=== PATIENT | female | born 1980 | race American Indian/Alaskan Native ===

== ENCOUNTER 2022-02-06 20:02 | Inpatient (IN) | payer SELFPAY ==
[2022-02-06] MEDS ORDERED: cloNIDine 0.2 MG TAB PO ONE (20:36)
--- NOTE | 2022-02-06 20:42 | Emergency Department Report ---
HPI - General Chief Complaint: Dyspnea/Respdistress Time Seen by Provider: 02/06/22 20:29 - HPI HPI: Room 17 The patient is a 41-year-old female present with chief complaint of shortness of breath. 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 Patient denies any chest pain or pain of any type. EMS was called and found the patient to be hypoxic to 90% on room air. Patient admits to an occasional cough that is sometimes productive but denies history of fever. Patient denies history of recent flights/long car trips. Patient states this is the sixth episode of shortness of breath she has had with her first episode occurring 3 months ago. The patient states she is never went to the hospital for evaluation. Patient observed desatting to 88% on room air in the ED but was placed on 2 L nasal cannula with improvement of SPO2 to 95% ED Past Medical Hx - Past Medical History Previous Medical History?: No Hx Diabetes: No (History of gestational diabetes) - Surgical History Past Surgical History?: Yes Additional Surgical History: X 3 - Family History Family history: no significant - Social History Smoking Status: Current Every Day Smoker (1/7 pack/day. Has smoked cigarettes x18 years) Substance Use Type: None (Denies illicit drug use), Alcohol (Occasional) ED Review of Systems ROS: Stated complaint: SOB Other details as noted in HPI Constitutional: denies: fever Eyes: denies: eye pain ENT: denies: throat pain Respiratory: cough, shortness of breath Cardiovascular: denies: chest pain Endocrine: no symptoms reported Gastrointestinal: denies: abdominal pain Genitourinary: denies: dysuria Musculoskeletal: denies: back pain Neurological: denies: headache Physical Exam - Physical Exam Vital Signs: Vital Signs 02/06/22 02/06/22 02/06/22 20:20 20:23 20:31 Temperature 98.4 F Pulse Rate 120 H Respiratory 20 Rate Blood Pressure 256/136 226/124 O2 Sat by Pulse 98 91 88 Oximetry 02/06/22 20:36 Temperature 99.1 F Pulse Rate 117 H Respiratory 22 Rate Blood Pressure O2 Sat by Pulse 97 Oximetry Physical Exam: GENERAL: The patient is well-developed well-nourished female sitting on str etcher not appearing to be in acute distress but exhibiting slightly increased work of breathing. [] HEENT: Normocephalic. Atraumatic. Extraocular motions are intact. Patient has moist mucous membranes. NECK: Supple. Trachea midline CHEST/LUNGS: Clear to auscultation. There is accessory muscle use HEART/CARDIOVASCULAR: Regular. There is tachycardia. There is no gallop rub or murmur. ABDOMEN: Abdomen is soft, nontender. Patient has normal bowel sounds. There is no abdominal distention. SKIN: There is no rash. There is no edema. There is no diaphoresis. NEURO: The patient is awake, alert, and oriented. The patient is cooperative. The patient has no focal neurologic deficits. The patient has normal speech. GCS 15 MUSCULOSKELETAL: There is no evidence of acute injury. ED Course Vital Signs 02/06/22 02/06/22 02/06/22 20:20 20:23 20:31 Temperature 98.4 F Pulse Rate 120 H Respiratory 20 Rate Blood Pressure 256/136 226/124 O2 Sat by Pulse 98 91 88 Oximetry 02/06/22 20:36 Temperature 99.1 F Pulse Rate 117 H Respiratory 22 Rate Blood Pressure O2 Sat by Pulse 97 Oximetry ED Medical Decision Making - Lab Data Result diagrams: 02/06/22 21:04 02/06/22 21:04 - EKG Data -: EKG Interpreted by Me EKG shows normal: sinus rhythm Rate: tachycardia (110 bpm) - EKG Data When compared to previous EKG there are: previous EKG unavailable Interpretation: nonspecific ST-T wave erick (T wave inversions in leads I, aVL) - Radiology Data Radiology results: report reviewed (Chest x-ray, CT chest), image reviewed (Chest x-ray, CT chest) interpreted by me: Chest [id number] lower lobe haziness, pulmonary edema. No pneumothorax [facility] [address] [place] [address] XRay Report Signed Patient: TOM ESTRADA MR#: [id number] : 1980 Acct:[id number] Age/Sex: 41 / F ADM Date: 02/06/22 Loc: ED Attending Dr: Ordering Physician: LUBNA NEAL MD Date of Service: 02/06/22 Procedure(s): XR chest 1V ap Accession Number(s): [id number] cc: LUBNA NEAL MD Fluoro Time In Minutes: CHEST 1 VIEW 02/06/2022 10:22 PM INDICATION / CLINICAL INFORMATION: Shortness of breath, hypoxia. COMPARISON: None available. FINDINGS: SUPPORT DEVICES: None. HEART / MEDIASTINUM: The cardiac silhouette is mildly enlarged. No other significant abnormality. LUNGS / PLEURA: There are generalized bilateral interstitial and airspace opacities, most notable along the right lung base. No significant pleural effusion. No pneumothorax. ADDITIONAL FINDINGS: No significant additional findings. IMPRESSION: Mild cardiomegaly with suspected edema/atelectasis. Signer Name: Reggie Gamez MD Signed: 02/06/2022 10:40 PM Workstation Name: [id number] Transcribed By: MN Dictated By: Reggie Gamez MD Electronically Authenticated By: Reggei Gamez MD Signed Date/Time: 02/06/222239 DD/ 39 TD/TT: [facility] [address] [place] [address] Cat Scan Report Signed Patient: TOM ESTRADA MR#: [id number] : 1980 Acct:[id number] Age/Sex: 41 / F ADM Date: 02/06/22 Loc: ED Attending Dr: Ordering Physician: LUBNA NEAL MD Date of Service: 02/06/22 Procedure(s): CT angio chest Accession Number(s): [id number] cc: LUBNA NEAL MD CTA CHEST WITH CONTRAST INDICATION / CLINICAL INFORMATION: Hypoxia. TECHNIQUE: Axial CT images were obtained through the chest after injection of 100 cc Omnipaque 350 IV contrast. 3 plane MIP and/or 3D reconstructions were produced. All CT scans at this location are performed using CT dose reduction for ALARA by means of automated exposure control. COMPARISON: One view of the chest performed today. FINDINGS: PULMONARY EMBOLUS: None. THORACIC AORTA: No significant abnormality. HEART: Mildly enlarged without other significant abnormalities. CORONARY ARTERY CALCIFICATION: Absent -- None. MEDIASTINUM / LEXI: No significant abnormality. PLEURA: No pleural effusion. No pneumothorax. LUNGS: There are multifocal bilateral groundglass opacities/consolidations with mild interlobular septal thickening. No other significant abnormality. ADDITIONAL FINDINGS: None. UPPER ABDOMEN: No acute findings. SKELETAL STRUCTURES: No significant osseous abnormality. IMPRESSION: 1. No CT evidence for pulmonary embolism. 2. Multifocal bilateral pneumonia versus pulmonary edema with mild cardiomegaly. Signer Name: Reggie Gamez MD Signed: 02/06/2022 11:46 PM Workstation Name: [id number] Transcribed By: LULU Dictated By: Reggie Gamez MD Electronically Authenticated By: Reggie Gamez MD Signed Date/Time: 02/06/222345 DD/ 43 TD/TT: - Differential Diagnosis Hypertensive urgency, PE, pneumonia, pulmonary edema Critical care attestation.: If time is entered above; I have spent that time in minutes in the direct care of this critically ill patient, excluding procedure time. ED Disposition Clinical Impression: Bilateral pneumonia, Hypoxia, Suspected 2019 novel coronavirus infection Disposition: ADMITTED INPATIENT Is pt being admited?: Yes Does the pt Need Aspirin: No Condition: Serious Instructions: Bacterial Pneumonia (ED) Time of Disposition: 23:56 (Care transferred to hospitalist (Dr. Betts))
[2022-02-06 21:49] LABS: Basophils # (Auto) 0.1 K/mm3 (0.0-0.1); Basophils % (Auto) 0.7 % (0.0-1.8); Eosinophils # (Auto) 0.1 K/mm3 (0.0-0.4); Eosinophils % (Auto) 0.5 % (0.0-4.3); Hematocrit 39.8 % (30.3-42.9); Hemoglobin 12.6 gm/dl (10.1-14.3); Lymphocytes % (Auto) 8.6 % (13.4-35.0); Mean Corpuscular HGB Conc 32 % (30-34); Mean Corpuscular Volume 86 fl (79-97); Monocytes # (Auto) 0.3 K/mm3 (0.0-0.8); Monocytes % (Auto) 2.6 % (0.0-7.3); Platelet Count 215 K/mm3 (140-440); Red Blood Count 4.63 M/mm3 (3.65-5.03); Red Cell Distribution Width 15.7 % (13.2-15.2)
[2022-02-06 22:17] LABS: BUN/Creatinine Ratio 13; Blood Urea Nitrogen 10 mg/dL (7-17); Calcium 9.7 mg/dL (8.4-10.2); Hemolysis Index 256
[2022-02-06 22:23] LABS: Free T4 (Free Thyroxine) 1.16 ng/dL (0.76-1.46)
--- NOTE | 2022-02-06 22:44 | XRay Report ---
CHEST 1 VIEW 02/06/2022 10:22 PM INDICATION / CLINICAL INFORMATION: Shortness of breath, hypoxia. COMPARISON: None available. FINDINGS: SUPPORT DEVICES: None. HEART / MEDIASTINUM: The cardiac silhouette is mildly enlarged. No other significant abnormality. LUNGS / PLEURA: There are generalized bilateral interstitial and airspace opacities, most notable lorie ng the right lung base. No significant pleural effusion. No pneumothorax. ADDITIONAL FINDINGS: No significant additional findings. IMPRESSION: Mild cardiomegaly with suspected edema/atelectasis. Signer Name: Reggie Gamez MD Signed: 02/06/2022 10:40 PM Workstation Name: [id number]
--- NOTE | 2022-02-06 23:50 | Cat Scan Report ---
CTA CHEST WITH CONTRAST INDICATION / CLINICAL INFORMATION: Hypoxia. TECHNIQUE: Axial CT images were obtained through the chest after injection of 100 cc Omnipaque 350 IV contrast. 3 plane MIP and/or 3D reconstructions were produced. All CT scans at this location are per formed using CT dose reduction for ALARA by means of automated exposure control. COMPARISON: One view of the chest performed today. FINDINGS: PULMONARY EMBOLUS: None. THORACIC AORTA: No significant abnormality. HEART: Mildly enlarged without other significant abnormalities. CORONARY ARTERY CALCIFICATION: Absent -- None. MEDIASTINUM / LEXI: No significant abnormality. PLEURA: No pleural effusion. No pneumothorax. LUNGS: There are multifocal bilateral groundglass opacities/consolidations with mild interlobular sep kenia thickening. No other significant abnormality. ADDITIONAL FINDINGS: None. UPPER ABDOMEN: No acute findings. SKELETAL STRUCTURES: No significant osseous abnormality. IMPRESSION: 1. No CT evidence for pulmonary embolism. 2. Multifocal bilateral pneumonia versus pulmonary edema with mild cardiomegaly. Signer Name: Reggie Gamez MD Signed: 02/06/2022 11:46 PM Workstation Name: [id number]
[2022-02-06] MEDS ORDERED: cefTRIAXone/NS 1 GM/50 ML 1 GM/50 ML BAG IV ONE (23:55)
[2022-02-06] MEDS ORDERED: AZITHROMYCIN/NS 500 MG/250 ML 500 MG/250 ML BAG IV ONE (23:55)
[2022-02-07] MEDS ORDERED: MORPHINE 4 MG/1 ML INJ IV PRN (02:52)
[2022-02-07] MEDS ORDERED: ONDANSETRON 4 MG/2 ML INJ IV PRN (02:52)
[2022-02-07] MEDS ORDERED: ALBUTEROL 2.5 MG/3 ML NEBU IH PRN ×2 (02:52→14:47)
[2022-02-07] MEDS ORDERED: MORPHINE 2 MG/1 ML INJ IV PRN (02:52)
[2022-02-07] MEDS ORDERED: ACETAMINOPHEN 325 MG TAB PO PRN (02:52)
[2022-02-07] MEDS ORDERED: FUROSEMIDE 40 MG/4 ML INJ IV ONE (02:54)
--- NOTE | 2022-02-07 03:00 | History and Physical Report ---
History of Present Illness Date of examination: 02/07/22 Date of admission: 02/07/22 Chief complaint: Dyspnea Respiratory distress History of present illness: 41-year-old female with history of gestational diabetes was brought to the emergency room because of shortness of breath for last couple of days. 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 Patient denies any chest pain or pain of any type. EMS was called and found the patient to be hypoxic to 90% on room air. Patient admits to an occasional cough that is sometimes productive but denies history of fever. Patient denies history of recent flights/long car trips. Patient states this is the sixth episode of shortness of breath she has had with her first episode occurring 3 months ago. The patient states she is never went to the hospital for evaluation. Patient observed desatting to 88% on room air in the ED but was placed on 2 L nasal cannula with improvement of SPO2 to 95% In the emergency room CT scan of the chest showed no CT evidence of pulmonary embolism. Multifocal bilateral pneumonia versus pulmonary edema with mild cardiomegaly. We are going to admit the patient we will put the patient on neb treatment, antibiotic Lasix and order echocardiogram and order COVID PCR Past History Past Medical History: other (Gestational diabetes) Past Surgical History: Family history: hypertension Medications and Allergies Allergies Allergy/AdvReac Type Severity Reaction Status Date / Time No Known Allergies Allergy Unverified 02/06/22 20:25 Active Meds: Active Medications Acetaminophen (Acetaminophen 325 Mg Tab) 650 mg PO Q4H PRN PRN Reason: Pain MILD(1-3)/Fever >100.5/LOPEZ Albuterol (Albuterol 2.5 Mg/3 Ml Nebu) 2.5 mg IH Q3HRT PRN PRN Reason: Shortness Of Breath Albuterol/Ipratropium (Ipratropium/Albuterol Sulfate 3 Ml Ampul.Neb) 1 ampul IH Q6HRT VICENTE Azithromycin (Azithromycin 250 Mg Tab) 500 mg PO QDAY VICENTE; Protocol Famotidine (Famotidine 20 Mg Tab) 20 mg PO BID VICENTE Furosemide (Furosemide 40 Mg/4 Ml Inj) 40 mg IV ONCE ONE Stop: 02/07/22 02:55 Heparin Sodium (Porcine) (Heparin 5,000 Unit/1 Ml Vial) 5,000 unit SUB-Q Q12HR VICENTE Ceftriaxone Sodium (Rocephin/Ns 2 Gm/100 Ml) 2 gm in 100 mls @ 200 mls/hr IV Q24H VICENTE; Protocol Morphine Sulfate (Morphine 2 Mg/1 Ml Inj) 2 mg IV Q4H PRN PRN Reason: Pain, Moderate (4-6) Morphine Sulfate (Morphine 4 Mg/1 Ml Inj) 4 mg IV Q4H PRN PRN Reason: Pain , Severe (7-10) Ondansetron HCl (Ondansetron 4 Mg/2 Ml Inj) 4 mg IV Q8H PRN PRN Reason: Nausea And Vomiting Sodium Chloride (Sodium Chloride 0.9% 10 Ml Flush Syringe) 10 ml IV BID VICENTE Sodium Chloride (Sodium Chloride 0.9% 10 Ml Flush Syringe) 10 ml IV PRN PRN PRN Reason: LINE FLUSH Review of Systems All systems: negative Cardiovascular: edema, shortness of breath, dyspnea on exertion Respiratory: cough, shortness of breath, dyspnea on exertion Exam - Constitutional Vitals: Temp Pulse Resp BP Pulse Ox 99.1 F 87 24 155/100 99 02/06/22 20:36 02/07/22 02:31 02/07/22 02:31 02/07/22 02:31 02/07/22 02:31 General appearance: Present: no acute distress, well-nourished - EENT Eyes: Present: PERRL ENT: hearing intact, clear oral mucosa - Neck Neck: Present: supple, normal ROM - Respiratory Respiratory effort: normal Respiratory: bilateral: diminished - Cardiovascular Heart Sounds: Present: S1 & S2. Absent: rub, click - Extremities Extremities: pulses symmetrical, No edema Peripheral Pulses: within normal limits - Abdominal General gastrointestinal: Present: soft, non-tender, non-distended, normal bowel sounds Female genitourinary: Present: normal - Integumentary Integumentary: Present: clear, warm, dry - Musculoskeletal Musculoskeletal: gait normal, strength equal bilaterally - Psychiatric Psychiatric: appropriate mood/affect, intact judgment & insight - Neurologic Neurologic: CNII-XII intact, moves all extremities HEART Score - HEART Score Troponin: Troponin T < 0.010 ng/mL (0.00-0.029) 02/06/22 21:04 Results - Labs CBC & Chem 7: 02/06/22 21:04 02/06/22 21:04 Labs: Laboratory Last Values WBC 12.1 K/mm3 (4.5-11.0) H 02/06/22 21:04 RBC 4.63 M/mm3 (3.65-5.03) 02/06/22 21:04 Hgb 12.6 gm/dl (10.1-14.3) 02/06/22 21:04 Hct 39.8 % (30.3-42.9) 02/06/22 21:04 MCV 86 fl (79-97) 02/06/22 21:04 MCH 27 pg (28-32) L 02/06/22 21:04 MCHC 32 % (30-34) 02/06/22 21:04 RDW 15.7 % (13.2-15.2) H 02/06/22 21:04 Plt Count 215 K/mm3 (140-440) 02/06/22 21:04 Lymph % (Auto) 8.6 % (13.4-35.0) L 02/06/22 21:04 [place] % (Auto) 2.6 % (0.0-7.3) 02/06/22 21:04 Eos % (Auto) 0.5 % (0.0-4.3) 02/06/22 21:04 Baso % (Auto) 0.7 % (0.0-1.8) 02/06/22 21:04 Lymph # (Auto) 1.0 K/mm3 (1.2-5.4) L 02/06/22 21:04 [place] # (Auto) 0.3 K/mm3 (0.0-0.8) 02/06/22 21:04 Eos # (Auto) 0.1 K/mm3 (0.0-0.4) 02/06/22 21:04 Baso # (Auto) 0.1 K/mm3 (0.0-0.1) 02/06/22 21:04 Seg Neutrophils % 87.6 % (40.0-70.0) H 02/06/22 21:04 Seg Neutrophils # 10.6 K/mm3 (1.8-7.7) H 02/06/22 21:04 D-Dimer 3139.89 ng/mlDDU (0-234) H 02/06/22 21:04 Sodium 136 mmol/L (137-145) L 02/06/22 21:04 Potassium 4.5 mmol/L (3.6-5.0) 02/06/22 21:04 Chloride 100.0 mmol/L (98-107) 02/06/22 21:04 Carbon Dioxide 22 mmol/L (22-30) 02/06/22 21:04 Anion Gap 19 mmol/L 02/06/22 21:04 BUN 10 mg/dL (7-17) 02/06/22 21:04 Creatinine 0.8 mg/dL (0.6-1.2) 02/06/22 21:04 Estimated GFR > 60 ml/min 02/06/22 21:04 BUN/Creatinine Ratio 13 % 02/06/22 21:04 Glucose 150 mg/dL (65-100) H 02/06/22 21:04 Calcium 9.7 mg/dL (8.4-10.2) 02/06/22 21:04 Troponin T < 0.010 ng/mL (0.00-0.029) 02/06/22 21:04 NT-Pro-B Natriuret Pep 1036 pg/mL (0-450) H 02/06/22 21:04 TSH 1.790 mlU/mL (0.270-4.200) 02/06/22 21:04 Free T4 1.16 ng/dL (0.76-1.46) 02/06/22 21:04 HCG, Qual Negative (Negative) 02/06/22 21:04 - Imaging and Cardiology Chest x-ray: report reviewed CT scan - chest: report reviewed Assessment and Plan VTE prophylaxis?: Chemical Plan of care discussed with patient/family: Yes - Patient Problems (1) Bilateral pneumonia Current Visit: Yes Status: Acute Plan to address problem: Admit the patient to the medical telemetry. Oxygen by nasal cannula 3 L/min. DuoNeb by nebulizer every 4 hours. Albuterol via nebulizer every 4 hours as needed. Rocephin 2 g IV daily and Zithromax 500 mg p.o. daily. We will do the blood culture and sputum culture. We also do a COVID PCR test (2) CHF (congestive heart failure) Current Visit: Yes Status: Acute Plan to address problem: Fluid restriction. Cardiac diet. Lasix 40 mg IV x1 dose. Echocardiogram. Con sult cardiology if needed (3) Hypoxia Current Visit: Yes Status: Acute Plan to address problem: Oxygen by nasal cannula 3 L/min. DuoNeb by nebulizer every 4 hours. Albuterol via nebulizer every 4 hours as needed. Rocephin 2 g IV daily and Zithromax 500 mg p.o. daily. We will do the blood culture and sputum culture. We also do a COVID PCR test (4) Gestational diabetes Current Visit: Yes Status: Acute Plan to address problem: We will monitor the glucose closely. If blood glucose is high will go to put the patient on insulin sliding scale. Recheck BMP. (5) Suspected 2019 novel coronavirus infection Current Visit: Yes Status: Acute Plan to address problem: Oxygen by nasal cannula 3 L/min. DuoNeb by nebulizer every 4 hours. Albuterol via nebulizer every 4 hours as needed. Rocephin 2 g IV daily and Zithromax 500 mg p.o. daily. We will do the blood culture and sputum culture. We also do a COVID PCR test (6) DVT prophylaxis Current Visit: Yes Status: Acute Plan to address problem: Heparin 5000 units subcu every 12 hours for DVT prophylaxis. Pepcid 20 mg p.o. twice daily for GI prophylaxis. Patient is a full code
[2022-02-07] MEDS: IPRATROPIUM/ALBUTEROL SULFATE 3 ML AMPUL.NEB IH SCH ×2 (08:18→14:40)
--- NOTE | 2022-02-07 09:48 | Electrocardiograph Report ---
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
--- NOTE | 2022-02-07 09:57 | Vascular Lab Report ---
DUPLEX DOPPLER LOWER EXTREMITY VEINS, BILATERAL INDICATION / CLINICAL INFORMATION: dvt. Pneumonia and obesity. Covid 19 infection suspected. TECHNIQUE: Duplex doppler imaging was performed through the veins of both lower extremities using tiana ous compression and other maneuvers. COMPARISON: None available. FINDINGS: RIGHT COMMON FEMORAL VEIN: Negative. RIGHT FEMORAL VEIN: Negative. RIGHT POPLITEAL VEIN: Negative. RIGHT CALF VEINS: Negative. LEFT COMMON FEMORAL VEIN: Negative. LEFT FEMORAL VEIN: Negative. LEFT POPLITEAL VEIN: Negative. LEFT CALF VEINS: Negative. ADDITIONAL FINDINGS: None. IMPRESSION: 1. No sonographic evidence for DVT in either lower extremity. Signer Name: Ronny Hayes MD Signed: 02/07/2022 9:53 AM Workstation Name: [id number]
[2022-02-07] MEDS: FAMOTIDINE 20 MG TAB PO SCH ×2 (10:22→21:09)
[2022-02-07] MEDS: HEPARIN 5,000 UNIT/1 ML VIAL SUB-Q SCH ×2 (10:22→21:10)
--- NOTE | 2022-02-07 11:54 | Progress Note ---
Assessment and Plan Assessment and plan: 2nd IMS visit today 41-year-old female with history of gestational diabetes was brought to the emergency room because of shortness of breath for last couple of days. 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 Patient denies any chest pain or pain of any type. EMS was called and found the patient to be hypoxic to 90% on room air. Patient admits to an occasional cough that is sometimes productive but denies history of fever. Patient denies history of recent flights/long car trips. Patient states this is the sixth episode of shortness of breath she has had with her first episode occurring 3 months ago. The patient states she is never went to the hospital for evaluation. Patient observed desatting to 88% on room air in the ED but was placed on 2 L nasal cannula with improvement of SPO2 to 95% In the emergency room CT scan of the chest showed no CT evidence of pulmonary embolism. Multifocal bilateral pneumonia versus pulmonary edema with mild cardiomegaly. We are going to admit the patient we will put the patient on neb treatment, antibiotic Lasix and order echocardiogram and order COVID PCR 02/07: Patient seen and examined, Continue supportive care, wean oxygen as tolerated 15 mins tobacco cessation counselling provided. Awaiting COVID testing result. Continue abx. Doppler of lower ext. anticipate discharge in a day or 2. (1) Bilateral pneumonia Current Visit: Yes Status: Acute Plan to address problem: Admit the patient to the medical telemetry. Oxygen by nasal cannula 3 L/min. DuoNeb by nebulizer every 4 hours. Albuterol via nebulizer every 4 hours as needed. Rocephin 2 g IV daily and Zithromax 500 mg p.o. daily. We will do the blood culture and sputum culture. We also do a COVID PCR test (2) CHF (congestive heart failure) Current Visit: Yes Status: Acute Plan to address problem: Fluid restriction. Cardiac diet. Lasix 40 mg IV x1 dose. Echocardiogram. Consult cardiology if needed (3) Hypoxia Current Visit: Yes Status: Acute Plan to address problem: Oxygen by nasal cannula 3 L/min. DuoNeb by nebulizer every 4 hours. Albuterol via nebulizer every 4 hours as needed. Rocephin 2 g IV daily and Zithromax 500 mg p.o. daily. We will do the blood culture and sputum culture. We also do a COVID PCR test (4) Gestational diabetes Current Visit: Yes Status: Acute Plan to address problem: We will monitor the glucose closely. If blood glucose is high will go to put the patient on insulin sliding scale. Recheck BMP. (5) Suspected 2019 novel coronavirus infection Current Visit: Yes Status: Acute Plan to address problem: Oxygen by nasal cannula 3 L/min. DuoNeb by nebulizer every 4 hours. Albuterol via nebulizer every 4 hours as needed. Rocephin 2 g IV daily and Zithromax 500 mg p.o. daily. We will do the blood culture and sputum culture. We also do a COVID PCR test (6) DVT prophylaxis Current Visit: Yes Status: Acute Plan to address problem: Heparin 5000 units subcu every 12 hours for DVT prophylaxis. Pepcid 20 mg p.o. twice daily for GI prophylaxis. Patient is a full code History Interval history: Patient seen and examined, sitting up, still on oxygen but states some improvement. Continues to smoke Hospitalist Physical - Physical exam Narrative exam: General appearance: Present:Mild distress respiratory laboy and still on oxygen. Sitting up - EENT Eyes: Present: PERRL ENT: hearing intact, clear oral mucosa - Neck Neck: Present: supple, normal ROM - Respiratory Respiratory effort: normal Respiratory: bilateral: diminished - Cardiovascular Heart Sounds: Present: S1 & S2. Absent: rub, click - Extremities Extremities: pulses symmetrical, No edema Peripheral Pulses: within normal limits - Abdominal General gastrointestinal: Present: soft, non-tender, non-distended, normal bowel sounds Female genitourinary: Present: normal - Integumentary Integumentary: Present: clear, warm, dry - Musculoskeletal Musculoskeletal: gait normal, strength equal bilaterally - Psychiatric Psychiatric: appropriate mood/affect, intact judgment & insight - Neurologic Neurologic: CNII-XII intact, moves all extremities - Constitutional Vitals: Temp Pulse Resp BP Pulse Ox 98.3 F 85 16 141/80 100 02/07/22 10:11 02/07/22 10:11 02/07/22 10:11 02/07/22 10:11 02/07/22 10:11 General appearance: Present: no acute distress, well-nourished HEART Score - HEART Score Troponin: Troponin T < 0.010 ng/mL (0.00-0.029) 02/06/22 21:04 Results - Labs CBC & Chem 7: 02/06/22 21:04 02/06/22 21:04 Labs: Laboratory Last Values WBC 12.1 K/mm3 (4.5-11.0) H 02/06/22 21:04 RBC 4.63 M/mm3 (3.65-5.03) 02/06/22 21:04 Hgb 12.6 gm/dl (10.1-14.3) 02/06/22 21:04 Hct 39.8 % (30.3-42.9) 02/06/22 21:04 MCV 86 fl (79-97) 02/06/22 21:04 MCH 27 pg (28-32) L 02/06/22 21:04 MCHC 32 % (30-34) 02/06/22 21:04 RDW 15.7 % (13.2-15.2) H 02/06/22 21:04 Plt Count 215 K/mm3 (140-440) 02/06/22 21:04 Lymph % (Auto) 8.6 % (13.4-35.0) L 02/06/22 21:04 [place] % (Auto) 2.6 % (0.0-7.3) 02/06/22 21:04 Eos % (Auto) 0.5 % (0.0-4.3) 02/06/22 21:04 Baso % (Auto) 0.7 % (0.0-1.8) 02/06/22 21:04 Lymph # (Auto) 1.0 K/mm3 (1.2-5.4) L 02/06/22 21:04 [place] # (Auto) 0.3 K/mm3 (0.0-0.8) 02/06/22 21:04 Eos # (Auto) 0.1 K/mm3 (0.0-0.4) 02/06/22 21:04 Baso # (Auto) 0.1 K/mm3 (0.0-0.1) 02/06/22 21:04 Seg Neutrophils % 87.6 % (40.0-70.0) H 02/06/22 21:04 Seg Neutrophils # 10.6 K/mm3 (1.8-7.7) H 02/06/22 21:04 D-Dimer 3139.89 ng/mlDDU (0-234) H 02/06/22 21:04 Sodium 136 mmol/L (137-145) L 02/06/22 21:04 Potassium 4.5 mmol/L (3.6-5.0) 02/06/22 21:04 Chloride 100.0 mmol/L (98-107) 02/06/22 21:04 Carbon Dioxide 22 mmol/L (22-30) 02/06/22 21:04 Anion Gap 19 mmol/L 02/06/22 21:04 BUN 10 mg/dL (7-17) 02/06/22 21:04 Creatinine 0.8 mg/dL (0.6-1.2) 02/06/22 21:04 Estimated GFR > 60 ml/min 02/06/22 21:04 BUN/Creatinine Ratio 13 % 02/06/22 21:04 Glucose 150 mg/dL (65-100) H 02/06/22 21:04 Calcium 9.7 mg/dL (8.4-10.2) 02/06/22 21:04 Troponin T < 0.010 ng/mL (0.00-0.029) 02/06/22 21:04 NT-Pro-B Natriuret Pep 1036 pg/mL (0-450) H 02/06/22 21:04 TSH 1.790 mlU/mL (0.270-4.200) 02/06/22 21:04 Free T4 1.16 ng/dL (0.76-1.46) 02/06/22 21:04 HCG, Qual Negative (Negative) 02/06/22 21:04 Microbiology: Microbiology 02/07/22 00:34 Peripheral/Venous Blood Culture - Preliminary Culture in Progress 02/07/22 00:30 Peripheral/Venous Blood Culture - Preliminary Culture in Progress Active Medications - Current Medications Current Medications: Generic Name Dose Route Start Last Admin Trade Name Freq PRN Reason Stop Dose Admin Acetaminophen 650 mg 02/07/22 02:52 Acetaminophen 325 Mg Tab PO Q4H PRN Pain MILD(1-3)/Fever >100.5/LOPEZ Albuterol 2.5 mg 02/07/22 02:52 Albuterol 2.5 Mg/3 Ml Nebu IH Q3HRT PRN Shortness Of Breath Albuterol/Ipratropium 1 ampul 02/07/22 08:00 02/07/22 08:18 Ipratropium/Albuterol Sulfate 3 Ml Ampul.Neb IH Not Given Q6HRT [facility] Azithromycin 500 mg 02/07/22 22:00 Azithromycin 250 Mg Tab PO 02/10/22 22:01 QHS [facility] Protocol Famotidine 20 mg 02/07/22 10:00 02/07/22 10:22 Famotidine 20 Mg Tab PO 20 mg BID VICENTE Administration Heparin Sodium (Porcine) 5,000 unit 02/07/22 10:00 02/07/22 10:22 Heparin 5,000 Unit/1 Ml Vial SUB-Q 5,000 unit Q12HR VICENTE Administration Ceftriaxone Sodium 2 gm in 100 mls @ 200 mls/hr 02/07/22 20:00 Rocephin/Ns 2 Gm/100 Ml IV 02/10/22 23:59 Q24H [facility] Protocol Morphine Sulfate 2 mg 02/07/22 02:52 Morphine 2 Mg/1 Ml Inj IV Q4H PRN Pain, Moderate (4-6) Morphine Sulfate 4 mg 02/07/22 02:52 Morphine 4 Mg/1 Ml Inj IV Q4H PRN Pain , Severe (7-10) Ondansetron HCl 4 mg 02/07/22 02:52 Ondansetron 4 Mg/2 Ml Inj IV Q8H PRN Nausea And Vomiting Sodium Chloride 10 ml 02/07/22 10:00 02/07/22 10:22 Sodium Chloride 0.9% 10 Ml Flush Syringe IV 10 ml BID VICENTE Administration Sodium Chloride 10 ml 02/07/22 02:52 Sodium Chloride 0.9% 10 Ml Flush Syringe IV PRN PRN LINE FLUSH
[2022-02-07] MEDS ORDERED: ALBUTEROL 8.5 GM MDI INHALATION IH PRN ×2 (15:11→20:00)
[2022-02-07] MEDS: cefTRIAXone/NS 2 GM/100 ML 2 GM/100 ML BAG IV SCH (20:21)
[2022-02-07] MEDS: AZITHROMYCIN 250 MG TAB PO SCH (21:09)
[2022-02-08 06:51] LABS: Basophils # (Auto) 0.1 K/mm3 (0.0-0.1); Basophils % (Auto) 0.7 % (0.0-1.8); Eosinophils # (Auto) 0.2 K/mm3 (0.0-0.4); Eosinophils % (Auto) 2.6 % (0.0-4.3); Hematocrit 36.2 % (30.3-42.9); Hemoglobin 11.5 gm/dl (10.1-14.3); Lymphocytes # (Auto) 1.7 K/mm3 (1.2-5.4); Lymphocytes % (Auto) 24.3 % (13.4-35.0); Mean Corpuscular HGB Conc 32 % (30-34); Mean Corpuscular Volume 85 fl (79-97); Monocytes # (Auto) 0.4 K/mm3 (0.0-0.8); Monocytes % (Auto) 5.2 % (0.0-7.3); Platelet Count 199 K/mm3 (140-440); Red Blood Count 4.25 M/mm3 (3.65-5.03); Red Cell Distribution Width 15.5 % (13.2-15.2)
[2022-02-08 07:16] LABS: BUN/Creatinine Ratio 13; Blood Urea Nitrogen 10 mg/dL (7-17); Calcium 9.1 mg/dL (8.4-10.2); Hemolysis Index 5
[2022-02-08] MEDS: FUROSEMIDE 40 MG/4 ML INJ IV SCH ×2 (09:54→18:14)
[2022-02-08] MEDS: FAMOTIDINE 20 MG TAB PO SCH ×2 (09:54→22:12)
[2022-02-08] MEDS: HEPARIN 5,000 UNIT/1 ML VIAL SUB-Q SCH ×2 (09:54→22:12)
--- NOTE | 2022-02-08 12:09 | Consultation ---
History of Present Illness Consult date: 02/08/22 Consult reason: congestive heart failure History of present illness: The patient is a 41-year-old woman who reports that she has never been to see a doctor. Presented to the hospital with intermittent shortness of breath and palpitations, ongoing for 3 months, but symptoms worsened over the past week. In the emergency room, she was found with a systolic blood pressure of 256 and symptoms of fluid overload, admitted for further evaluation. Cardiology consultation is requested for assessment of heart failure. The patient has no chest pain, no lower extremity edema. She looks and feels better after initiation of intravenous diuretics. EKG on this presentation showed a mild sinus tachycardia, with left ventricular hypertrophy and repolarization abnormalities of LVH. Chest x-ray revealed a moderate severity cardiomegaly, bilateral mild interstitial edema. In addition, there was a focal, right lower lobe opacity. Echocardiogram done on this presentation showed a dilated cardiomyopathy with left ventricular ejection fraction 30 to 35%. Past History Past Medical History: other (Gestational diabetes) Past Surgical History: Family history: hypertension Medications and Allergies Allergies Allergy/AdvReac Type Severity Reaction Status Date / Time No Known Allergies Allergy Verified 02/07/22 03:24 Active Meds: Active Medications Acetaminophen (Acetaminophen 325 Mg Tab) 650 mg PO Q4H PRN PRN Reason: Pain MILD(1-3)/Fever >100.5/LOPEZ Albuterol (Albuterol 8.5 Gm Mdi Inhalation) 2 puff IH Q6HRT PRN PRN Reason: Shortness Of Breath Azithromycin (Azithromycin 250 Mg Tab) 500 mg PO QHS VICENTE; Protocol Stop: 02/10/22 22:01 Last Admin: 02/07/22 21:09 Dose: 500 mg Famotidine (Famotidine 20 Mg Tab) 20 mg PO BID VICENTE Last Admin: 02/08/22 09:54 Dose: 20 mg Furosemide (Furosemide 40 Mg/4 Ml Inj) 40 mg IV 0600,1800 VICENTE Last Admin: 02/08/22 09:54 Dose: 40 mg Heparin Sodium (Porcine) (Heparin 5,000 Unit/1 Ml Vial) 5,000 unit SUB-Q Q12HR VICENTE Last Admin: 02/08/22 09:54 Dose: 5,000 unit Ceftriaxone Sodium (Rocephin/Ns 2 Gm/100 Ml) 2 gm in 100 mls @ 200 mls/hr IV Q24H VICENTE; Protocol Stop: 02/10/22 23:59 Last Admin: 02/07/22 20:21 Dose: 200 mls/hr Morphine Sulfate (Morphine 2 Mg/1 Ml Inj) 2 mg IV Q4H PRN PRN Reason: Pain, Moderate (4-6) Morphine Sulfate (Morphine 4 Mg/1 Ml Inj) 4 mg IV Q4H PRN PRN Reason: Pain , Severe (7-10) Ondansetron HCl (Ondansetron 4 Mg/2 Ml Inj) 4 mg IV Q8H PRN PRN Reason: Nausea And Vomiting Sodium Chloride (Sodium Chloride 0.9% 10 Ml Flush Syringe) 10 ml IV BID [facility] Last Admin: 02/08/22 09:54 Dose: 10 ml Sodium Chloride (Sodium Chloride 0.9% 10 Ml Flush Syringe) 10 ml IV PRN PRN PRN Reason: LINE FLUSH Review of Systems Cardiovascular: orthopnea, palpitations, shortness of breath, no chest pain, no rapid/irregular heart beat, no edema, no syncope, no lightheadedness Physical Examination Vital Signs Temp Pulse Resp BP Pulse Ox 98.4 F 120 H 20 256/136 98 02/06/22 20:20 02/06/22 20:20 02/06/22 20:20 02/06/22 20:20 02/06/22 20:20 General appearance: no acute distress HEENT: Positive: PERRL Neck: Positive: neck supple Cardiac: Positive: Reg Rate and Rhythm Lungs: Positive: Decreased Breath Sounds Neuro: Positive: Grossly Intact Abdomen: Positive: Soft Female genitourinary: deferred Skin: Positive: Clear Extremities: Absent: edema Results 02/08/22 06:34 02/08/22 06:14 CBC 02/08/22 Range/Units 06:34 WBC 7.1 (4.5-11.0) K/mm3 RBC 4.25 (3.65-5.03) M/mm3 Hgb 11.5 (10.1-14.3) gm/dl Hct 36.2 (30.3-42.9) % Plt Count 199 (140-440) K/mm3 Lymph # (Auto) 1.7 (1.2-5.4) K/mm3 [place] # (Auto) 0.4 (0.0-0.8) K/mm3 Eos # (Auto) 0.2 (0.0-0.4) K/mm3 Baso # (Auto) 0.1 (0.0-0.1) K/mm3 Comprehensive Metabolic Panel 02/08/22 Range/Units 06:14 Sodium 138 (137-145) mmol/L Potassium 3.6 (3.6-5.0) mmol/L Chloride 102.7 (98-107) mmol/L Carbon Dioxide 26 (22-30) mmol/L BUN 10 (7-17) mg/dL Creatinine 0.8 (0.6-1.2) mg/dL Glucose 104 H (65-100) mg/dL Calcium 9.1 (8.4-10.2) mg/dL EKG interpretations - Telemetry EKG Rhythm: Sinus Tachycardia (With left ventricle hypertrophy and repolarization abnormalities of LVH) Assessment and Plan - Patient Problems (1) Acute systolic heart failure Current Visit: Yes Status: Acute Plan to address problem: Patient admitted with fluid overload, and a new diagnosis of systolic left ventricular failure, ejection fraction 30 to 35%. Etiology of cardiomyopathy is likely chronic uncontrolled hypertension. We will initiate guideline directed medical therapy including optimal diuretics. (2) Severe uncontrolled hypertension Current Visit: Yes Status: Acute Plan to address problem: Severe uncontrolled hypertension in the patient who states that she has never been for routine medical care. I have started valsartan 80 mg twice daily for hypertension control and afterload reduction.
--- NOTE | 2022-02-08 12:34 | Progress Note ---
Assessment and Plan 41-year-old female with history of gestational diabetes was brought to the emergency room because of shortness of breath for last couple of days. 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 Patient denies any chest pain or pain of any type. EMS was called and found the patient to be hypoxic to 90% on room air. Patient admits to an occasional cough that is sometimes productive but denies history of fever. Patient denies history of recent flights/long car trips. Patient states this is the sixth episode of shortness of breath she has had with her first episode occurring 3 months ago. The patient states she is never went to the hospital for evaluation. Patient observed desatting to 88% on room air in the ED but was placed on 2 L nasal cannula with improvement of SPO2 to 95% In the emergency room CT scan of the chest showed no CT evidence of pulmonary embolism. Multifocal bilateral pneumonia versus pulmonary edema with mild cardiomegaly. We are going to admit the patient we will put the patient on neb treatment, antibiotic Lasix and order echocardiogram and order COVID PCR 02/07: Patient seen and examined, Continue supportive care, wean oxygen as t olerated 15 mins tobacco cessation counselling provided. Awaiting COVID testing result. Continue abx. Doppler of lower ext. anticipate discharge in a day or 2. 02/08: 2D echo suggestive for EF 30 to 35%, adjust BP medications, consult cardiology. Continue empiric antibiotic for pneumonia (1) Bilateral pneumonia Current Visit: Yes Status: Acute Plan to address problem: Admit the patient to the medical telemetry. Oxygen by nasal cannula 3 L/min. DuoNeb by nebulizer every 4 hours. Albuterol via nebulizer every 4 hours as needed. Rocephin 2 g IV daily and Zithromax 500 mg p.o. daily. We will do the blood culture and sputum culture. We also do a COVID PCR test (2) CHF (congestive heart failure) Current Visit: Yes Status: Acute Plan to address problem: Fluid restriction. Cardiac diet. Lasix 40 mg IV x1 dose. Echocardiogram. Consult cardiology if needed (3) Acute Hypoxic respiratory failure, due to CHF and PNA, now resolved Current Visit: Yes Status: Acute Plan to address problem: Oxygen by nasal cannula 3 L/min. DuoNeb by nebulizer every 4 hours. Albuterol via nebulizer every 4 hours as needed. Rocephin 2 g IV daily and Zithromax 500 mg p.o. daily. We will do the blood culture and sputum culture. neg COVID PCR test (4) Gestational diabetes Current Visit: Yes Status: Acute Plan to address problem: We will monitor the glucose closely. If blood glucose is high will go to put the patient on insulin sliding scale. Recheck BMP. (5) Suspected 2019 novel coronavirus infection - ruled out Current Visit: Yes Status: Acute Plan to address problem: Oxygen by nasal cannula 3 L/min. DuoNeb by nebulizer every 4 hours. Albuterol via nebulizer every 4 hours as needed. Rocephin 2 g IV daily and Zithromax 500 mg p.o. daily. We will do the blood culture and sputum culture. We also do a COVID PCR test (6) DVT prophylaxis Current Visit: Yes Status: Acute Plan to address problem: Heparin 5000 units subcu every 12 hours for DVT prophylaxis. Pepcid 20 mg p.o. twice daily for GI prophylaxis. Patient is a full code History Interval history: Patient seen and examined, sitting up, still on oxygen but states some improvement. Continues to smoke Hospitalist Physical - Physical exam Narrative exam: General appearance: Present:Mild distress respiratory laboy and still on oxygen. Sitting up - EENT Eyes: Present: PERRL ENT: hearing intact, clear oral mucosa - Neck Neck: Present: supple, normal ROM - Respiratory Respiratory effort: normal Respiratory: bilateral: diminished - Cardiovascular Heart Sounds: Present: S1 & S2. Absent: rub, click - Extremities Extremities: pulses symmetrical, No edema Peripheral Pulses: within normal limits - Abdominal General gastrointestinal: Present: soft, non-tender, non-distended, normal bowel sounds Female genitourinary: Present: normal - Integumentary Integumentary: Present: clear, warm, dry - Musculoskeletal Musculoskeletal: gait normal, strength equal bilaterally - Psychiatric Psychiatric: appropriate mood/affect, intact judgment & insight - Neurologic Neurologic: CNII-XII intact, moves all extremities Subjective Date of service: 02/08/22 Objective - Constitutional Vitals: Vital Signs - 12hr 02/08/22 02/08/22 01:20 08:05 Temperature 98.1 F Pulse Rate 80 Respiratory 18 Rate Blood Pressure 157/104 [Right] O2 Sat by Pulse 97 99 Oximetry - Labs CBC & Chem 7: 02/08/22 06:34 02/08/22 06:14 Labs: Abnormal lab results 02/08/22 02/08/22 Range/Units 06:14 06:34 MCH 27 L (28-32) pg RDW 15.5 H (13.2-15.2) % Glucose 104 H (65-100) mg/dL HEART Score - HEART Score Troponin: Troponin T < 0.010 ng/mL (0.00-0.029) 02/06/22 21:04
[2022-02-08] MEDS: carvediloL 6.25 MG TAB PO SCH ×2 (13:18→22:12)
[2022-02-08] MEDS: SPIRONOLACTONE 25 MG TAB PO SCH (13:18)
[2022-02-08] MEDS: ASPIRIN EC 81 MG TAB PO SCH (13:18)
[2022-02-08] MEDS: VALSARTAN 40 MG TAB PO SCH ×2 (13:19→22:12)
[2022-02-08] MEDS: AZITHROMYCIN 250 MG TAB PO SCH (22:12)
[2022-02-08] MEDS: cefTRIAXone/NS 2 GM/100 ML 2 GM/100 ML BAG IV SCH (22:15)
[2022-02-09] MEDS: FUROSEMIDE 40 MG/4 ML INJ IV SCH ×2 (06:28→17:37)
[2022-02-09] MEDS: ASPIRIN EC 81 MG TAB PO SCH (09:41)
[2022-02-09] MEDS: FAMOTIDINE 20 MG TAB PO SCH ×2 (09:41→22:24)
[2022-02-09] MEDS: HEPARIN 5,000 UNIT/1 ML VIAL SUB-Q SCH ×2 (09:41→22:23)
[2022-02-09] MEDS: carvediloL 6.25 MG TAB PO SCH (09:42)
[2022-02-09] MEDS: VALSARTAN 40 MG TAB PO SCH (09:42)
[2022-02-09] MEDS: SPIRONOLACTONE 25 MG TAB PO SCH (09:42)
[2022-02-09] MEDS ORDERED: carvediloL 6.25 MG TAB PO SCH (09:57)
[2022-02-09] MEDS ORDERED: carvediloL 6.25 MG TAB PO ONE (11:00)
[2022-02-09 11:37] LABS: BUN/Creatinine Ratio 12; Blood Urea Nitrogen 11 mg/dL (7-17); Calcium 9.4 mg/dL (8.4-10.2); Hemolysis Index 1
--- NOTE | 2022-02-09 13:17 | Progress Note ---
Assessment and Plan - Patient Problems (1) Acute systolic heart failure Current Visit: Yes Status: Acute Plan to address problem: Patient admitted with fluid overload, and a new diagnosis of systolic left ventricular failure, ejection fraction 30 to 35%. Etiology of cardiomyopathy is likely chronic uncontrolled hypertension. We will continue guideline directed medical therapy including optimal diuretics. (2) Severe uncontrolled hypertension Current Visit: Yes Status: Acute Plan to address problem: Severe uncontrolled hypertension in the patient who states that she has never been for routine medical care. We will increase valsartan 160 twice daily. Subjective Date of service: 02/09/22 Principal diagnosis: Uncontrolled hypertension, systolic heart failure Interval history: Patient looks and feels better today, no new cardiac complaints. Blood pressure is still elevated on 80 mg of valsartan. Objective Vital Signs Temp Pulse Resp BP BP Pulse Ox 02/09/22 12:07 76 147/89 02/09/22 10:00 97 02/09/22 09:42 93 H 172/107 02/09/22 05:39 98.1 F 76 20 136/87 98 02/08/22 22:57 98.3 F 80 20 139/85 100 02/08/22 22:00 96 02/08/22 20:00 18 99 02/08/22 17:32 98.1 F 75 22 155/93 99 02/08/22 15:04 97 - Physical Examination General: No Apparent Distress HEENT: Positive: PERRL Neck: Positive: neck supple Cardiac: Positive: Reg Rate and Rhythm Lungs: Positive: Decreased Breath Sounds Neuro: Positive: Grossly Intact Abdomen: Positive: Soft Skin: Positive: Clear Extremities: Absent: edema - Labs and Meds Comprehensive Metabolic Panel 02/09/22 Range/Units 10:48 Sodium 137 (137-145) mmol/L Potassium 4.2 (3.6-5.0) mmol/L Chloride 99.5 (98-107) mmol/L Carbon Dioxide 28 (22-30) mmol/L BUN 11 (7-17) mg/dL Creatinine 0.9 (0.6-1.2) mg/dL Glucose 112 H (65-100) mg/dL Calcium 9.4 (8.4-10.2) mg/dL
--- NOTE | 2022-02-09 16:25 | Progress Note ---
Assessment and Plan 41-year-old female with history of gestational diabetes was brought to the emergency room because of shortness of breath for last couple of days. 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 Patient denies any chest pain or pain of any type. EMS was called and found the patient to be hypoxic to 90% on room air. Patient admits to an occasional cough that is sometimes productive but denies history of fever. Patient denies history of recent flights/long car trips. Patient states this is the sixth episode of shortness of breath she has had with her first episode occurring 3 months ago. The patient states she is never went to the hospital for evaluation. Patient observed desatting to 88% on room air in the ED but was placed on 2 L nasal cannula with improvement of SPO2 to 95% In the emergency room CT scan of the chest showed no CT evidence of pulmonary embolism. Multifocal bilateral pneumonia versus pulmonary edema with mild cardiomegaly. We are going to admit the patient we will put the patient on neb treatment, antibiotic Lasix and order echocardiogram and order COVID PCR 02/07: Patient seen and examined, Continue supportive care, wean oxygen as t olerated 15 mins tobacco cessation counselling provided. Awaiting COVID testing result. Continue abx. Doppler of lower ext. anticipate discharge in a day or 2. 02/08: 2D echo suggestive for EF 30 to 35%, adjust BP medications, consult cardiology. Continue empiric antibiotic for pneumonia 02/09; Patient admitted with fluid overload, and a new diagnosis of systolic left ventricular failure, ejection fraction 30 to 35%. Etiology of cardiomyopathy is likely chronic uncontrolled hypertension. Increase Coreg and valsartan dose (1) Bilateral pneumonia Current Visit: Yes Status: Acute Plan to address problem: Admit the patient to the medical telemetry. Oxygen by nasal cannula 3 L/min. DuoNeb by nebulizer every 4 hours. Albuterol via nebulizer every 4 hours as needed. Rocephin 2 g IV daily and Zithromax 500 mg p.o. daily. We will do the blood culture and sputum culture. We also do a COVID PCR test (2) CHF (congestive heart failure) Current Visit: Yes Status: Acute Plan to address problem: Fluid restriction. Cardiac diet. Lasix 40 mg IV x1 dose. Echocardiogram. Consult cardiology if needed (3) Acute Hypoxic respiratory failure, due to CHF and PNA, now resolved Current Visit: Yes Status: Acute Plan to address problem: Oxygen by nasal cannula 3 L/min. DuoNeb by nebulizer every 4 hours. Albuterol via nebulizer every 4 hours as needed. Rocephin 2 g IV daily and Zithromax 500 mg p.o. daily. We will do the blood culture and sputum culture. neg COVID PCR test (4) Gestational diabetes Current Visit: Yes Status: Acute Plan to address problem: We will monitor the glucose closely. If blood glucose is high will go to put the patient on insulin sliding scale. Recheck BMP. (5) Suspected 2019 novel coronavirus infection - ruled out Current Visit: Yes Status: Acute Plan to address problem: Oxygen by nasal cannula 3 L/min. DuoNeb by nebulizer every 4 hours. Albuterol via nebulizer every 4 hours as needed. Rocephin 2 g IV daily and Zithromax 500 mg p.o. daily. We will do the blood culture and sputum culture. We also do a COVID PCR test (6) DVT prophylaxis Current Visit: Yes Status: Acute Plan to address problem: Heparin 5000 units subcu every 12 hours for DVT prophylaxis. Pepcid 20 mg p.o. twice daily for GI prophylaxis. Patient is a full code History Interval history: Patient seen and examined, sitting up, still on oxygen but states some improvement. Continues to smoke Hospitalist Physical - Physical exam Narrative exam: General appearance: Present:Mild distress respiratory laboy and still on oxygen. Sitting up - EENT Eyes: Present: PERRL ENT: hearing intact, clear oral mucosa - Neck Neck: Present: supple, normal ROM - Respiratory Respiratory effort: normal Respiratory: bilateral: diminished - Cardiovascular Heart Sounds: Present: S1 & S2. Absent: rub, click - Extremities Extremities: pulses symmetrical, No edema Peripheral Pulses: within normal limits - Abdominal General gastrointestinal: Present: soft, non-tender, non-distended, normal bowel sounds Female genitourinary: Present: normal - Integumentary Integumentary: Present: clear, warm, dry - Musculoskeletal Musculoskeletal: gait normal, strength equal bilaterally - Psychiatric Psychiatric: appropriate mood/affect, intact judgment & insight - Neurologic Neurologic: CNII-XII intact, moves all extremities Subjective Date of service: 02/09/22 Principal diagnosis: Uncontrolled hypertension, systolic heart failure Objective - Constitutional Vitals: Vital Signs - 12hr 02/09/22 02/09/22 02/09/22 05:39 08:00 09:42 Temperature 98.1 F Pulse Rate 76 93 H Respiratory 20 18 Rate Blood Pressure 172/107 Blood Pressure 136/87 [Right] O2 Sat by Pulse 98 99 Oximetry 02/09/22 02/09/22 02/09/22 10:00 12:07 12:35 Temperature 97.9 F Pulse Rate 76 79 Respiratory 22 Rate Blood Pressure 147/89 169/90 Blood Pressure [Right] O2 Sat by Pulse 97 96 Oximetry - Labs CBC & Chem 7: 02/08/22 06:34 02/09/22 10:48 Labs: Abnormal lab results 02/09/22 Range/Units 10:48 Glucose 112 H (65-100) mg/dL HEART Score - HEART Score Troponin: Troponin T < 0.010 ng/mL (0.00-0.029) 02/06/22 21:04
[2022-02-09] MEDS: VALSARTAN 160MG TAB PO SCH ×2 (17:35→22:23)
[2022-02-09] MEDS: cefTRIAXone/NS 2 GM/100 ML 2 GM/100 ML BAG IV SCH (22:21)
[2022-02-09] MEDS: AZITHROMYCIN 250 MG TAB PO SCH (22:23)
[2022-02-09] MEDS: carvediloL 12.5 MG TAB PO SCH (22:23)
[2022-02-10] MEDS: FUROSEMIDE 40 MG/4 ML INJ IV SCH ×2 (07:06→17:38)
[2022-02-10] MEDS: FAMOTIDINE 20 MG TAB PO SCH (10:04)
[2022-02-10] MEDS: VALSARTAN 160MG TAB PO SCH (10:04)
[2022-02-10] MEDS: carvediloL 12.5 MG TAB PO SCH (10:04)
[2022-02-10] MEDS: ASPIRIN EC 81 MG TAB PO SCH (10:04)
[2022-02-10] MEDS: SPIRONOLACTONE 25 MG TAB PO SCH (10:05)
[2022-02-10] MEDS: HEPARIN 5,000 UNIT/1 ML VIAL SUB-Q SCH (10:05)
--- NOTE | 2022-02-10 12:47 | Progress Note ---
Assessment and Plan - Patient Problems (1) Acute systolic heart failure Current Visit: Yes Status: Acute Plan to address problem: Patient admitted with fluid overload, and a new diagnosis of systolic left ventricular failure, ejection fraction 30 to 35%. Etiology of cardiomyopathy is likely chronic uncontrolled hypertension. We will continue guideline directed medical therapy including optimal diuretics. Stable for cardiac discharge, further outpatient management including noninvasive ischemia assessment in 7 days. (2) Severe uncontrolled hypertension Current Visit: Yes Status: Acute Plan to address problem: Severe uncontrolled hypertension in the patient who states that she has never been for routine medical care. We will continue valsartan 160 twice daily. Subjective Date of service: 02/10/22 Principal diagnosis: Uncontrolled hypertension, systolic heart failure Interval history: Patient looks and feels better today, no new cardiac complaints. Blood pressure is much better, currently 128 systolic on 160 mg of valsartan. Objective Vital Signs Temp Pulse Resp BP Pulse Ox 02/10/22 10:05 86 128/74 02/10/22 10:04 86 128/74 02/10/22 10:02 84 128/74 99 02/10/22 04:58 98.0 F 71 20 123/70 98 02/09/22 21:08 98.6 F 81 20 159/85 97 02/09/22 20:00 18 99 02/09/22 18:23 98.4 F 80 22 127/78 100 02/09/22 17:42 140/79 02/09/22 17:35 80 140/79 - Physical Examination General: No Apparent Distress HEENT: Positive: PERRL Neck: Positive: neck supple Cardiac: Positive: Reg Rate and Rhythm Lungs: Positive: Decreased Breath Sounds Neuro: Positive: Grossly Intact Abdomen: Positive: Soft Skin: Positive: Clear Extremities: Absent: edema
--- NOTE | 2022-02-10 16:10 | Discharge Summary ---
Providers - Providers Date of Admission: 02/07/22 02:52 Date of discharge: 02/10/22 Attending physician: TRISTIAN SULLIVAN 02/08/22 09:15 Consult to Physician [CONS] Routine Comment: Consulting Provider: GENO FLORES Physician Instructions: Reason For Exam: chf Primary care physician: FRANK MENSAH Hospitalization Condition: Serious Disposition: HOME / SELF CARE / HOMELESS Final Discharge Diagnosis (Prints w/discharge instructions): --Bilateral pneumonia. --Acute systolic CHF, EF 30-35%. --Acute Hypoxic respiratory failure, due to CHF and PNA, now resolved. --Gestational diabetes. --Suspected 2019 novel coronavirus infection - ruled out Time spent for discharge: 34 minutes Core Measure Documentation - Palliative Care Palliative Care/ Comfort Measures: Not Applicable - Core Measures Any of the following diagnoses?: none Exam - Constitutional Vitals: Temp Pulse Resp BP Pulse Ox 97.3 F L 75 22 112/86 99 02/10/22 12:35 02/10/22 12:35 02/10/22 12:35 02/10/22 12:35 02/10/22 12:35 Plan Activity: advance as tolerated Weight Bearing Status: Weight Bear as Tolerated Diet: low fat, low salt Follow up with: FRANK MENSAH MD [Primary Care Provider] - 3-5 Days Prescriptions: Azithromycin [Zithromax TAB] 500 mg PO QHS #30 tablet Spironolactone [Aldactone] 25 mg PO QDAY #30 tablet carvediloL [Coreg] 12.5 mg PO BID #60 tablet Valsartan [Diovan] 160 mg PO BID #60 tablet Aspirin EC [Halfprin EC] 81 mg PO QDAY #30 tablet
[2022-02-10 18:21] VITALS: BP 160/84
== END 2022-02-10 18:30 | disposition home or self-care (01) | DRG 193 ==
LOC: ED 20:02 → 4A 02-07 02:52 → 3A 02-07 05:32
PROVIDERS: ADMIT Hospitalist; ATTEND Internal Medicine
DX: J18.9 Pneumonia, unspecified organism (principal); I50.21 Acute systolic (congestive) heart failure; J96.01 Acute respiratory failure with hypoxia; I42.0 Dilated cardiomyopathy; Z20.822 Contact with and (suspected) exposure to COVID-19; F17.210 Nicotine dependence, cigarettes, uncomplicated; I11.0 Hypertensive heart disease with heart failure; Z82.49 Family history of ischemic heart disease and other diseases of the circulatory system
CPT/HCPCS: 36415; 71045; 71275; 80048; 83880; 84439; 84443; 84484; 84703; 85025; 85379; 87040; 93005; 93306; 93970; 94640; 94760; G0378; C8929; J0456; J0696; J1644; J1940; Q9967; U0003